=== PATIENT | female | born 1995 | race Two or more races ===

== ENCOUNTER → 2024-07-13 | Outpatient (CLI) | payer BC, SELFPAY ==
--- NOTE | 2024-07-13 | XR_ITS ---
Examination: PA lateral chest 2 views TECHNIQUE: Upright AP lateral chest 2 views Exam date and time: July 13, 2024 0736 hours Comparison December 08, 2023 INDICATIONS: History tuberculosis FINDINGS: Normal heart size Lungs are clear. The osseous structures are intact IMPRESSION: No active disease No radiographic findings of tuberculosis
[2024-07-13 07:55] LABS: Quantiferon-TB* See Sep Rpt
[2024-07-13 08:18] LABS: Collection Type, Urine Clean Catch
[2024-07-13 08:44] LABS: Basophils # (Auto) 0.1 Thou/mm3 (0.0-0.2); Basophils % (Auto) 1 % (0-2.5); Eosinophils # (Auto) 0.1 Thou/mm3 (0.0-0.5); Eosinophils % (Auto) 1 % (0-10); Hematocrit 38.2 % (36.0-46.0); Hemoglobin 12.4 g/dL (12.0-16.0); Immature Granulocytes % (Auto) 0 % (0-0); Immature Granulocytes Auto 0.02 Thou/mm3 (0.00-0.00); Lymphocytes # (Auto) 2.2 Thou/mm3 (1.0-4.8); Lymphocytes % (Auto) 29 % (10-50); Mean Corpuscular HGB Conc 32.5 g/dl (31.0-37.0); Mean Corpuscular Hemoglobin 27.3 pg (25.0-35.0); Mean Corpuscular Volume 84 fL (80-100); Monocytes # (Auto) 0.4 Thou/mm3 (0.0-0.8); Monocytes % (Auto) 5 % (0-12); Neutrophils # (Auto) 4.9 Thou/mm3 (1.8-7.7); Neutrophils % (Auto) 64 % (37-80); Nucleated Red Blood Cell % 0 /100 WBC (0); Platelet Count 259 Thou/mm3 (140-440); RDW Standard Deviation 42.7 fL (36.4-46.3); Red Blood Count 4.55 Miln/mm3 (4.00-5.20); White Blood Count 7.6 Thou/mm3 (3.6-11.0)
[2024-07-13 08:53] LABS: Bacteria,Urine Rare; Bilirubin,Urine Negative (Negative); Blood,Urine Negative (Negative); Clarity,Urine Clear (Clear/Hazy); Color,Urine Yellow (Lt Yel-Yel); Glucose, Urine Negative (Negative); Ketones,Urine Negative (Negative); Leukocyte Esterase,Urine Positive (Negative); Nitrite,Urine Negative (Negative); PH,Urine 5.5 (5.0-7.0); Protein,Urine Trace (Neg - Trace); RBC,Urine 6 /hpf (0-3); Specific Gravity,Urine 1.028 (1.001-1.035); Squamous Epithelial Cell,Urine 5 /hpf (0-5); Urobilinogen,Urine Negative mg/dL (0.0-1.0); WBC,Urine 21 /hpf (0-5)
[2024-07-13 09:02] LABS: Culture Indicated,Urine Yes
[2024-07-13 09:03] LABS: Glucose Estimated Average 111 mg/dL (80-131); Hemoglobin A1C 5.5 % Hgb (4.8-6.0)
[2024-07-13 09:08] LABS: Alanine Aminotransferase 17 U/L (10-49); Albumin, Serum 4.5 gm/dL (3.5-5.0); Albumin/Globulin Ratio 1.7 (1.2-2.2); Alkaline Phosphatase 86 U/L (46-116); Anion Gap 8 (7-16); Aspartate Amino Transferase 14 U/L (0-34); BUN/Creatinine Ratio 11 Ratio (12-20); Bilirubin,Total 0.4 mg/dL (0.3-1.2); Blood Urea Nitrogen 8 mg/dL (9-23); Calcium 9.3 mg/dL (8.3-10.6); Calcium (Corrected) 9.3 mg/dL (8.5-10.1); Carbon Dioxide 25.5 mMol/L (20.0-31.0); Cardiac Risk Estimate 2.5 RATIO (3.7-5.6); Chloride 105 mMol/L (98-107); Cholesterol 149 mg/dL (132-200); Creatinine (Component) 0.7 mg/dL (0.6-1.3); Globulin 2.7 gm/dL (2.3-3.5); Glucose 100 mg/dL (74-106); HDL Cholesterol 59 mg/dL (40-60); LDL Cholesterol,Calculated 77 mg/dL (0-130); Osmolality,Calculated 273 (275-295); Potassium 4.2 mMol/L (3.4-5.1); Sodium 138 mMol/L (136-145); Thyroid Stimulating Hormone 0.63 uIU/mL (0.55-4.78); Total Protein 7.2 gm/dL (5.7-8.2); Triglycerides 64 mg/dL (30-150); eGFR > 60 See Note
[2024-07-13 09:20] LABS: Hepatitis B Surface Antigen Non Reactive (Non React); Vitamin D 25 Hydroxy Total 17.3 ng/mL (7.3-40.2)
[2024-07-18 22:05] LABS: Hepatitis B Virus DNA* NOT DETECTED
[2024-07-20 07:04] LABS: Hepatitis B Core Ab,Total* NONREACTIVE; Hepatitis B DNA PCR NOT DETECTED Log IU/mL; Measles Antibody (IgG) <13.50 AU/mL; Rubella Antibody (IgG) 2.08 INDEX; Varicella-Zoster IgG Ab* 7.08 S/CO
== END | disposition home or self-care (01) ==
LOC: CDIM 06:55 → COPL 07:39
PROVIDERS: PCP Family Medicine; Referring Provider Family Medicine; Visit Provider Radiology Diagnostic Radiology
DX: Z86.11 Personal history of tuberculosis (principal); Z00.00 Encounter for general adult medical examination without abnormal findings; M08.00 Unspecified juvenile rheumatoid arthritis of unspecified site; E11.9 Type 2 diabetes mellitus without complications; Z13.0 Encounter for screening for diseases of the blood and blood-forming organs and certain disorders involving the immune mechanism; Z13.1 Encounter for screening for diabetes mellitus; Z13.21 Encounter for screening for nutritional disorder; Z13.29 Encounter for screening for other suspected endocrine disorder
CPT/HCPCS: 36415; 71046; 80053; 80061; 81001; 82306; 83036; 84443; 85025; 86480; 86704; 86735; 86762; 86765; 86787; 87086; 87340; 87517

== ENCOUNTER → 2025-03-30 | Outpatient (CLI) | payer BC, SELFPAY ==
--- NOTE | 2025-03-30 08:45 | XR_ITS ---
Examination: Breast ultrasound complete, bilateral Date and time of exam: March 30, 2025, 0850 hours INDICATION: Breast screening study, family history, mother, breast cancer Technique: Real-time grayscale ultrasonographic imaging bilateral breasts, including all 4 quadrants as well as nipple retroareolar and axillary regions. Findings: Sonographic images right and left breast demonstrated no cystic or solid masses IMPRESSION: BI-RADS Category 1: Negative studies
== END | disposition home or self-care (01) ==
LOC: CDIM 08:21
PROVIDERS: PCP Family Medicine; Referring Provider Family Medicine; Visit Provider Family Medicine
DX: Z12.39 Encounter for other screening for malignant neoplasm of breast (principal); Z80.3 Family history of malignant neoplasm of breast
CPT/HCPCS: 76641